=== PATIENT | female | born 1965 | race Caucasian/White ===

== ENCOUNTER → 2016-12-21 | Outpatient (CLI) | payer OTHER | END | disposition home or self-care (01) | LOC: PTH.S 14:54 → EDBD 14:54 → PTH.S 15:00 | DX: J45.901 Unspecified asthma with (acute) exacerbation (principal) ==

== ENCOUNTER → 2016-12-30 | Outpatient (CLI) | payer OTHER | END | disposition home or self-care (01) | LOC: RAD.S 12-16 15:20 → EDBD 08:36 → RAD.S 08:36 | DX: Z12.31 Encounter for screening mammogram for malignant neoplasm of breast (principal); N63 Unspecified lump in breast ==

== ENCOUNTER → 2017-01-24 | Outpatient (CLI) | payer OTHER | END | disposition home or self-care (01) | LOC: EDBD 06:49 → THER.SSS 06:49 | DX: J45.901 Unspecified asthma with (acute) exacerbation (principal) ==